=== PATIENT | male | born 1955 | race Caucasian/White ===

== ENCOUNTER 2017-07-28 05:24 | Observation (INO) | payer OTHER ==
[~2017-07-28] VITALS: Ht 170.2 cm; Wt 105.4 kg
[~2017-07-28 05:24] MED LIST: AMLODIPINE BESYL5 MG PO; ASPIR 8181 M1 PO; ASPIR-LOW81 MG PO; BISOPROLOL-HCT1 EAC2 PO; BISOPROLOL-HCT1 EAC4 PO; CRESTOR20 MG PO; CRESTOR40 MG PO; DIGESTIVE ADVA1 EAC1 PO; DOCUSATE SODIU100 MG PO; DYAZIDE, MA1 CAPSULE PO; EFFEXOR XR75 MG PO; EFFEXOR75 MG PO; EFFIENT10 MG PO; ERGOCALCIF50000 UNIT PO; FENOFIBRATE160 M1 PO; FISH OIL 1,0001 EAC7 PO; FISH OIL 1,2001 EAC5 PO; FLAGYL250 MG PO; FLAGYL500 MG PO; FUROSEMIDE40 MG PO; GLIPIZIDE10 MG PO; GLIPIZIDE5 MG PO; GLUCOPHAGE1000 MG PO; GLUCOPHAGE500 MG PO; HUMALOG100 UNIT/1 SC; HUMALOG100 UNIT/2 SC; IMDUR120 MG PO; IMDUR30 MG PO; IMDUR60 MG PO; INVOKANA300 MG PO; ISOSORBIDE MON120 M1 PO; JANUVIA100 MG PO; KEFLEX500 MG PO; LEVEMIR FL100 UNIT/1 SC; LEVEMIR FL100 UNITS/ SC; LEVEMIR100 UNIT/2 SC; LIRAGLUTIDE IJ; LISINOPRIL10 MG PO; LO-DOSE ASPIRIN81 M1 PO; LO-DOSE ASPIRIN81 M2 PO; LOPRESSOR25 MG PO; LOPRESSOR50 MG PO; LOVAZA1 GM PO; MAXZIDE 37.5 M1 EACH PO; METFORMIN HCL500 MG PO; METOPROLOL TART25 MG PO; MIRALAX17 GM PO; NEXIUM 24HR20 MG PO; NEXIUM20 MG PO; NEXIUM40 MG PO; NIASPAN,SLO-NI500 MG PO; NITROSTAT0.4 MG SL; OXAYDO5 MG PO; PLAVIX75 MG PO; POTASSIUM CHLO20 ME2 PO; PROBIOTIC1 EAC1 PO; RANEXA1000 MG PO; RANEXA500 MG PO; SIMVASTATIN20 MG PO; SPIRONOLACTONE25 MG PO; TRESIBA FL100 UNIT/1 SC; TRIAMTERENE-HC1 EACH PO; TRICOR145 MG PO; TYLENOL EXTRA500 MG PO; VENLAFAXINE HCL75 M1 PO; VENLAFAXINE HCL75 M3 PO; VENLAFAXINE HCL75 MG PO; VICODIN 5-3001 EACH PO; VICTOZA 2-0.6 MG/0.1 IJ; VICTOZA IJ; VITAMIN D2000 UNIT PO; VITAMIN D32000 UNI1 PO; VITAMIN D32000 UNIT PO; ZIAC 2.5/6.251 TAB PO
[2017-07-28 06:07] LABS: HEMATOCRIT 40.2 % (38.0-50.0); MCH 28.5 PG (29.0-34.0); MCHC 33.8 G/DL (30.0-36.0); MCV 84.3 FL (86-99); MEAN PLAT.VOLUME 8.8 uM^3 (9.0-12.4); PLATELET COUNT 97 K/uL (156-360); RBC DIS.WIDTH-CV 14.6 % (11.8-14.6); RBC DIS.WIDTH-SD 44.4 % (39-53); RED BLOOD COUNT 4.77 M/uL (4.00-5.50); WHITE BLOOD COUNT 3.8 K/uL (4.1-10.2)
[2017-07-28 06:15] LABS: CHLORIDE 98 mEq/L (99-109); POTASSIUM 4.3 mEq/L (3.7-5.4); SODIUM 134 mEq/L (136-147)
[2017-07-28 06:17] LABS: GLUCOSE 257 mg/dL (70-99)
[2017-07-28 06:18] LABS: ANION GAP 18 MEQ/L (2-14)
[2017-07-28 06:21] LABS: GFR ESTIMATE (CALCULATED) > 59 mL/min/; UREA NITROGEN (BUN) 14 mg/dL (9-23)
[2017-07-28 06:28] LABS: TROP-I INTERPRETATION NEGATIVE; TROPONIN-I 0.01 ng/mL (0.0-0.30)
[2017-07-28 08:38] VITALS: BP 146/77
[2017-07-28 12:43] VITALS: BP 103/69
[2017-07-28] MEDS ORDERED: DIGESTIVE ADVA1 EAC1 PO (13:26)
[2017-07-28] MEDS ORDERED: FENOFIBRATE160 M1 PO (13:27)
[2017-07-28] MEDS ORDERED: EFFIENT10 MG PO (13:28)
[2017-07-28] MEDS ORDERED: CRESTOR40 MG PO (13:28)
[2017-07-28] MEDS ORDERED: ALDACTONE25 MG PO (13:29)
[2017-07-28] MEDS ORDERED: FUROSEMIDE40 MG PO (13:29)
[2017-07-28] MEDS ORDERED: INVOKANA300 MG PO (13:30)
[2017-07-28] MEDS ORDERED: JANUVIA100 MG PO (13:30)
[2017-07-28] MEDS ORDERED: NEXIUM40 MG PO (13:31)
[2017-07-28] MEDS ORDERED: VENLAFAXINE HCL75 M3 PO (13:32)
[2017-07-28] MEDS ORDERED: METFORMIN HCL1000 MG PO (13:33)
[2017-07-28] MEDS ORDERED: METOPROLOL TART25 MG PO (13:33)
[2017-07-28] MEDS ORDERED: POTASSIUM CHLO20 ME2 PO (13:36)
[2017-07-28] MEDS ORDERED: ASPIR 8181 M1 PO (13:36)
[2017-07-28] MEDS ORDERED: VITAMIN D2000 UNIT PO (13:37)
[2017-07-28] MEDS ORDERED: TRESIBA FL200 UNIT/1 SC (13:38)
[2017-07-28] MEDS ORDERED: HUMALOG100 UNIT/1 SC (13:39)
[2017-07-28 13:53] LABS: TROP-I INTERPRETATION NEGATIVE; TROPONIN-I < 0.01 ng/mL (0.0-0.30)
[2017-07-28 16:38] LABS: POINT-OF-CARE METER ID UU13113700
[2017-07-28 18:51] LABS: TROP-I INTERPRETATION NEGATIVE; TROPONIN-I < 0.01 ng/mL (0.0-0.30)
[2017-07-28 19:44] VITALS: BP 139/72
[2017-07-28] MEDS ORDERED: OXYCODONE HCL5 MG PO (21:03)
[2017-07-28] MEDS ORDERED: FLEXERIL5 MG PO (21:04)
[2017-07-28 21:30] LABS: POINT-OF-CARE METER ID UU13113831
== END 2017-07-28 22:24 | disposition home or self-care (01) ==
LOC: EME 05:24 → EDOF 07:23 → ENRESERV 07:28 → EDOF 07:35 → 5WEST 08:19
PROVIDERS: Internal Medicine
DX: R07.89 Other chest pain (principal); M54.6 Pain in thoracic spine; D68.9 Coagulation defect, unspecified; I35.0 Nonrheumatic aortic (valve) stenosis; Z95.2 Presence of prosthetic heart valve; I25.10 Atherosclerotic heart disease of native coronary artery without angina pectoris; Z95.1 Presence of aortocoronary bypass graft; I10 Essential (primary) hypertension; E11.9 Type 2 diabetes mellitus without complications; E78.5 Hyperlipidemia, unspecified; G47.30 Sleep apnea, unspecified; E66.9 Obesity, unspecified; Z68.39 Body mass index [BMI] 39.0-39.9, adult; K21.9 Gastro-esophageal reflux disease without esophagitis; Z98.890 Other specified postprocedural states; Z82.49 Family history of ischemic heart disease and other diseases of the circulatory system; Z79.4 Long term (current) use of insulin
CPT/HCPCS: 71020; 71275; 80048; 81003; 82948; 83605; 84484; 85027; 85379; 87040; 87502; 87801; 93005; 99281; 99285; G0378; J1650; J1815; J7030

== ENCOUNTER 2017-12-16 01:00 | Inpatient (IN) | payer OTHER ==
[2017-12-16] VITALS (17 sets, daily range): BP systolic 85–152; BP diastolic 53–98
[~2017-12-16 01:00] MED LIST changes: +ALDACTONE25 MG PO; +FLEXERIL5 MG PO; +METFORMIN HCL1000 MG PO; +OXYCODONE HCL5 MG PO; +TRESIBA FL200 UNIT/1 SC
[2017-12-16 01:12] LABS: BASOPHIL (%) 0.3 % (0-1); EOSINOPHIL (%) 0.2 % (0-5); HEMATOCRIT 30.5 % (38.0-50.0); HEMOGLOBIN 9.7 G/DL (12.5-16.6); IMMATURE GRANULOCYTE (%) 0.5 % (0.0-0.7); LYMPHOCYTE (%) 23.6 % (15-42); LYMPHOCYTE COUNT 1.5 K/uL (1.0-2.8); MCH 24.3 PG (29.0-34.0); MCHC 31.8 G/DL (30.0-36.0); MCV 76.3 FL (86-99); MONOCYTE (%) 6.1 % (3-12); MONOCYTE COUNT 0.4 K/uL (0-0.8); NEUTROPHIL (%) 69.3 % (45-76); NEUTROPHIL COUNT 4.4 K/uL (1.8-6.4); PLATELET COUNT 165 K/uL (156-360); RBC DIS.WIDTH-SD 52.3 % (39-53); WHITE BLOOD COUNT 6.4 K/uL (4.1-10.2)
[2017-12-16 01:17] LABS: INTER. NORMALIZED RATIO 1.3
[2017-12-16 01:20] LABS: PTT 28.9 SEC (25-37)
[2017-12-16 01:35] LABS: TROP-I INTERPRETATION NEGATIVE; TROPONIN-I < 0.01 ng/mL (0.0-0.30)
[2017-12-16 01:52] LABS: AMYLASE 130 IU/L (1-118); CHLORIDE 99 MEQ/L (99-109); GLUCOSE 160 mg/dL (70-99); LIPASE 155 U/L (1.0-51.0); POTASSIUM 4.1 MEQ/L (3.7-5.4); SERUM ETHYL ALCOHOL < 10 mg/dL; SODIUM 130 MEQ/L (136-147); UREA NITROGEN (BUN) 13 mg/dL (9-23)
[2017-12-16 02:36] LABS: CREATININE 0.8 MG/DL (0.6-1.3); GFR ESTIMATE (CALCULATED) > 59 mL/min/ (58.99-99999)
[2017-12-16 08:42] LABS: CHLORIDE 98 MEQ/L (99-109); GFR ESTIMATE (CALCULATED) > 59 mL/min/ (58.99-99999); GLUCOSE 157 mg/dL (70-99); POTASSIUM 4.1 MEQ/L (3.7-5.4); SODIUM 132 MEQ/L (136-147); UREA NITROGEN (BUN) 15 mg/dL (9-23)
[2017-12-16 09:33] LABS: TROP-I INTERPRETATION POSITIVE
[2017-12-16 10:00] LABS: BASOPHIL (%) 0.1 % (0-1); EOSINOPHIL (%) 0 % (0-5); HEMATOCRIT 29.4 % (38.0-50.0); HEMOGLOBIN 9.4 G/DL (12.5-16.6); IMMATURE GRANULOCYTE (%) 0.5 % (0.0-0.7); LYMPHOCYTE (%) 11.5 % (15-42); LYMPHOCYTE COUNT 0.9 K/uL (1.0-2.8); MCV 75.2 FL (86-99); MONOCYTE (%) 4.2 % (3-12); MONOCYTE COUNT 0.3 K/uL (0-0.8); NEUTROPHIL (%) 83.7 % (45-76); NEUTROPHIL COUNT 6.8 K/uL (1.8-6.4); PLATELET COUNT 172 K/uL (156-360); RBC DIS.WIDTH-CV 19.1 % (11.8-14.6); RBC DIS.WIDTH-SD 52.1 % (39-53); RED BLOOD COUNT 3.91 M/uL (4.00-5.50); WHITE BLOOD COUNT 8.1 K/uL (4.1-10.2)
[2017-12-16 10:09] LABS: CHLORIDE 98 MEQ/L (99-109); POTASSIUM 3.8 MEQ/L (3.7-5.4); SODIUM 130 MEQ/L (136-147)
[2017-12-16 10:15] LABS: CREATININE 0.9 MG/DL (0.6-1.3); GFR ESTIMATE (CALCULATED) > 59 mL/min/ (58.99-99999); GLUCOSE 147 mg/dL (70-99); UREA NITROGEN (BUN) 15 mg/dL (9-23)
[2017-12-16 13:05] LABS: CREATINE KINASE 876 IU/L (1-294); TOTAL CK 876 IU/L (1-294)
[2017-12-16 13:28] LABS: TROP-I INTERPRETATION POSITIVE
[2017-12-16 14:37] LABS: CK-MB 33.2 ng/mL (0.0-4.9); CKMB RELATIVE INDEX 3.8 (0.0-3.9)
[2017-12-16 18:49] LABS: CREATINE KINASE 640 IU/L (1-294); TOTAL CK 640 IU/L (1-294)
[2017-12-16 18:53] LABS: TROP-I INTERPRETATION POSITIVE; TROPONIN-I 35.11 ng/mL (0.0-0.30)
[2017-12-16 20:14] LABS: CKMB RELATIVE INDEX 2.8 (0.0-3.9)
[2017-12-16 20:18] LABS: CK-MB 18.2 ng/mL (0.0-4.9)
[2017-12-17] VITALS (20 sets, daily range): BP systolic 80–125; BP diastolic 43–78
[2017-12-17 01:10] LABS: TROP-I INTERPRETATION POSITIVE
[2017-12-17 01:34] LABS: CK-MB 8.5 ng/mL (0.0-4.9)
[2017-12-17 02:11] LABS: CREATINE KINASE 430 IU/L (1-294); TOTAL CK 430 IU/L (1-294)
[2017-12-17 04:54] LABS: BASOPHIL (%) 0.2 % (0-1); EOSINOPHIL (%) 0.2 % (0-5); HEMATOCRIT 26.3 % (38.0-50.0); HEMOGLOBIN 8.5 G/DL (12.5-16.6); IMMATURE GRANULOCYTE (%) 0.9 % (0.0-0.7); LYMPHOCYTE (%) 22.7 % (15-42); LYMPHOCYTE COUNT 1.9 K/uL (1.0-2.8); MCH 24.3 PG (29.0-34.0); MCHC 32.3 G/DL (30.0-36.0); MCV 75.1 FL (86-99); MONOCYTE (%) 6.7 % (3-12); MONOCYTE COUNT 0.6 K/uL (0-0.8); NEUTROPHIL (%) 69.3 % (45-76); NEUTROPHIL COUNT 5.7 K/uL (1.8-6.4); PLATELET COUNT 179 K/uL (156-360); RBC DIS.WIDTH-CV 19.4 % (11.8-14.6); RBC DIS.WIDTH-SD 53.1 % (39-53); WHITE BLOOD COUNT 8.2 K/uL (4.1-10.2)
[2017-12-17 06:04] LABS: CHLORIDE 97 MEQ/L (99-109); CREATININE 0.9 MG/DL (0.6-1.3); GFR ESTIMATE (CALCULATED) > 59 mL/min/ (58.99-99999); LDL CHOLESTEROL 38 mg/dL (Desirable<100); NON-HDL CHOLESTEROL 68 mg/dL (Desirable<160); POTASSIUM 3.7 MEQ/L (3.7-5.4); SODIUM 129 MEQ/L (136-147); TOTAL CHOLESTEROL 74 mg/dL (Desirable<200); TRIGLYCERIDES 149 MG/DL (Normal: <150); UREA NITROGEN (BUN) 15 mg/dL (9-23)
[2017-12-17 06:06] LABS: GLUCOSE 91 mg/dL (70-99); HDL CHOLESTEROL 6 MG/DL (Desirable>=40)
[2017-12-17 09:03] LABS: HEMOGLOBIN A1c (GLYCOHEMOGLOB) 6.1 % (Below 5.7)
== END 2017-12-17 20:13 | disposition short-term general hospital (02) | DRG 246 ==
LOC: EME → EDBD 01:00 → ENRESERV 01:22 → CATH 01:30 → ENRESERV 01:41 → 4WEST 04:53
PROVIDERS: Emergency Medicine; Internal Medicine Cardiovascular Disease; Internal Medicine Critical Care Medicine
PROC: 027034Z Dilation of Coronary Artery, One Artery with Drug-eluting Intraluminal Device, Percutaneous Approach (ICD-10-PCS; principal; 2017-12-16)
PROC: B2151ZZ Fluoroscopy of Left Heart using Low Osmolar Contrast (ICD-10-PCS; principal; 2017-12-16)
PROC: 4A023N7 Measurement of Cardiac Sampling and Pressure, Left Heart, Percutaneous Approach (ICD-10-PCS; principal; 2017-12-16)
PROC: B2111ZZ Fluoroscopy of Multiple Coronary Arteries using Low Osmolar Contrast (ICD-10-PCS; principal; 2017-12-16)
PROC: 5A09357 Assistance with Respiratory Ventilation, Less than 24 Consecutive Hours, Continuous Positive Airway Pressure (ICD-10-PCS; 2017-12-16)
DX: T82.855A Stenosis of coronary artery stent, initial encounter (principal); I21.09 ST elevation (STEMI) myocardial infarction involving other coronary artery of anterior wall; Y83.1 Surgical operation with implant of artificial internal device as the cause of abnormal reaction of the patient, or of later complication, without mention of misadventure at the time of the procedure; I25.10 Atherosclerotic heart disease of native coronary artery without angina pectoris; I25.5 Ischemic cardiomyopathy; E87.1 Hypo-osmolality and hyponatremia; I27.20 Pulmonary hypertension, unspecified; E11.9 Type 2 diabetes mellitus without complications; E78.5 Hyperlipidemia, unspecified; G47.33 Obstructive sleep apnea (adult) (pediatric); I10 Essential (primary) hypertension; K21.9 Gastro-esophageal reflux disease without esophagitis; D64.9 Anemia, unspecified; G43.909 Migraine, unspecified, not intractable, without status migrainosus; M10.9 Gout, unspecified; M54.9 Dorsalgia, unspecified; R10.9 Unspecified abdominal pain; L71.9 Rosacea, unspecified; E66.9 Obesity, unspecified; Z95.1 Presence of aortocoronary bypass graft; Z95.3 Presence of xenogenic heart valve; Z95.5 Presence of coronary angioplasty implant and graft; Z79.82 Long term (current) use of aspirin
CPT/HCPCS: 80048; 80048 91; 80061; 81003; 82150; 82550; 82550 91; 82553; 82948; 83036; 83690; 84484; 85025; 85025 91; 85347; 85610; 85730; 86850; 86900; 86901; 87641; 90686; 93005; 93306; 94660; C1725; C1760; C1769; C1874; C1887; C1894; G0480; J0690; J1644; J1815; J1940; J2250; J2405; J3010; J3246; J3475; J7040

== ENCOUNTER 2018-01-23 11:18 | Inpatient (IN) | payer OTHER ==
[~2018-01-23] VITALS: Ht 170.2 cm; Wt 96.8 kg
[~2018-01-23 11:18] MED LIST changes: -LOPRESSOR50 MG PO; +TOPROL XL50 MG PO
[2018-01-23 11:47] LABS: BASOPHIL (%) 0.2 % (0-1); EOSINOPHIL (%) 0.2 % (0-5); HEMATOCRIT 26.9 % (38.0-50.0); HEMOGLOBIN 8.6 G/DL (12.5-16.6); IMMATURE GRANULOCYTE (%) 0.8 % (0.0-0.7); LYMPHOCYTE (%) 22.9 % (15-42); LYMPHOCYTE COUNT 1.2 K/uL (1.0-2.8); MCH 24.2 PG (29.0-34.0); MCV 75.8 FL (86-99); MONOCYTE (%) 4.5 % (3-12); MONOCYTE COUNT 0.2 K/uL (0-0.8); NEUTROPHIL (%) 71.4 % (45-76); NEUTROPHIL COUNT 3.6 K/uL (1.8-6.4); PLATELET COUNT 164 K/uL (156-360); RBC DIS.WIDTH-CV 19.7 % (11.8-14.6); RBC DIS.WIDTH-SD 54.4 % (39-53); RED BLOOD COUNT 3.55 M/uL (4.00-5.50); WHITE BLOOD COUNT 5.1 K/uL (4.1-10.2)
[2018-01-23 12:03] LABS: CHLORIDE 97 mEq/L (99-109); SODIUM 130 mEq/L (136-147)
[2018-01-23 12:04] LABS: GLUCOSE 117 mg/dL (70-99)
[2018-01-23 12:08] LABS: CREATININE 0.8 mg/dL (0.6-1.3); GFR ESTIMATE (CALCULATED) > 59 mL/min/ (58.99-99999)
[2018-01-23 12:09] LABS: UREA NITROGEN (BUN) 14 mg/dL (9-23)
[2018-01-23 13:05] LABS: INTER. NORMALIZED RATIO 1.3
[2018-01-23 13:08] LABS: ALBUMIN 2.7 g/dL (3.2-4.8); PTT 38.3 SEC (25-37)
[2018-01-23 13:11] LABS: TOTAL PROTEIN 8.2 g/dL (6.4-8.3)
[2018-01-23 13:13] LABS: TOTAL BILIRUBIN 0.7 mg/dL (0.0-1.0)
[2018-01-23 13:14] LABS: ALKALINE PHOSPHATASE 74 IU/L (3-129)
[2018-01-23 13:16] LABS: AST (GOT) 40 IU/L (2-34)
[2018-01-23 13:17] LABS: ALT (GPT) 20 IU/L (3-49)
[2018-01-23 13:32] LABS: APPEARANCE CLEAR ((CLEAR)); BILIRUBIN NEGATIVE; BLOOD LARGE; COLOR YELLOW ((YELLOW)); GLUCOSE (STRIP) >=500; KETONES NEGATIVE; LEUKOCYTES NEGATIVE; NITRITE NEGATIVE; PROTEIN (STRIP) NEGATIVE; SPECIFIC GRAVITY 1.007 (1.000-1.030); UROBILINOGEN 0.2 MG/DL (0.2-1.0)
[2018-01-23 13:40] LABS: BACTERIA RARE /HPF; EPITHELIAL CELLS NONE SEEN /HPF; MUCUS TRACE /LPF; RED BLOOD CELLS 15-20 /HPF (0-5); UCUL ADDED? NO; WHITE BLOOD CELLS 0-5 /HPF (0-5)
[2018-01-23] MEDS ORDERED: FARXIGA5 MG PO (15:27)
[2018-01-23] MEDS ORDERED: INDOCIN50 MG PO (15:30)
[2018-01-23] MEDS ORDERED: PRINIVIL5 MG PO (15:30)
[2018-01-23] MEDS ORDERED: COLCRYS0.6 MG PO (15:30)
[2018-01-23] MEDS ORDERED: B-12500 MC1 SL (15:30)
[2018-01-23 16:21] VITALS: BP 124/62
[2018-01-23 19:41] VITALS: BP 103/64
[2018-01-23 23:16] VITALS: BP 106/65
[2018-01-24 04:31] VITALS: BP 100/65
[2018-01-24 05:47] LABS: HEMATOCRIT 26.2 % (38.0-50.0); HEMOGLOBIN 8.1 G/DL (12.5-16.6); MCH 23.5 PG (29.0-34.0); MCHC 30.9 G/DL (30.0-36.0); MCV 75.9 FL (86-99); PLATELET COUNT 175 K/uL (156-360); RBC DIS.WIDTH-CV 19.7 % (11.8-14.6); RBC DIS.WIDTH-SD 53.9 % (39-53); RED BLOOD COUNT 3.45 M/uL (4.00-5.50); WHITE BLOOD COUNT 4.5 K/uL (4.1-10.2)
[2018-01-24 06:10] LABS: CHLORIDE 97 MEQ/L (99-109); CREATININE 0.8 MG/DL (0.6-1.3); GFR ESTIMATE (CALCULATED) > 59 mL/min/ (58.99-99999); GLUCOSE 97 mg/dL (70-99); SODIUM 132 MEQ/L (136-147); UREA NITROGEN (BUN) 12 mg/dL (9-23)
[2018-01-24 08:57] VITALS: BP 97/60
[2018-01-24 11:29] VITALS: BP 104/65
[2018-01-24 16:32] VITALS: BP 111/70
[2018-01-24 20:24] VITALS: BP 113/74
[2018-01-24 23:44] VITALS: BP 113/74
[2018-01-25] VITALS (13 sets, daily range): BP systolic 98–119; BP diastolic 62–76
[2018-01-25 05:56] LABS: HEMOGLOBIN 7.4 G/DL (12.5-16.6); MCH 23.3 PG (29.0-34.0); MCHC 30.8 G/DL (30.0-36.0); MCV 75.7 FL (86-99); PLATELET COUNT 146 K/uL (156-360); RBC DIS.WIDTH-CV 19.6 % (11.8-14.6); RBC DIS.WIDTH-SD 55.1 % (39-53); RED BLOOD COUNT 3.17 M/uL (4.00-5.50); WHITE BLOOD COUNT 4.2 K/uL (4.1-10.2)
[2018-01-25 06:22] LABS: CHLORIDE 101 MEQ/L (99-109); CREATININE 0.6 MG/DL (0.6-1.3); GFR ESTIMATE (CALCULATED) > 59 mL/min/ (58.99-99999); GLUCOSE 137 mg/dL (70-99); SODIUM 133 MEQ/L (136-147); UREA NITROGEN (BUN) 13 mg/dL (9-23)
[2018-01-25 10:47] LABS: HEMATOCRIT 23.5 % (38.0-50.0); HEMOGLOBIN 7.3 G/DL (12.5-16.6); MCV 77.6 FL (86-99)
[2018-01-25 12:22] LABS: TROP-I INTERPRETATION NEGATIVE; TROPONIN-I 0.11 ng/mL (0.0-0.30)
[2018-01-26 01:41] VITALS: BP 109/69
[2018-01-26 02:07] LABS: HEMOGLOBIN 8.6 G/DL (12.5-16.6)
[2018-01-26 02:27] LABS: CHLORIDE 101 mEq/L (99-109); MAGNESIUM 1.3 mg/dL (1.3-2.7); SODIUM 135 mEq/L (136-147)
[2018-01-26 02:30] LABS: GLUCOSE 95 mg/dL (70-99)
[2018-01-26 02:32] LABS: CREATININE 0.9 mg/dL (0.6-1.3); GFR ESTIMATE (CALCULATED) > 59 mL/min/ (58.99-99999)
[2018-01-26 02:33] LABS: UREA NITROGEN (BUN) 15 mg/dL (9-23)
[2018-01-26 04:49] VITALS: BP 108/66
[2018-01-26 05:45] LABS: HEMOGLOBIN 8.3 G/DL (12.5-16.6); MCH 24.7 PG (29.0-34.0); MCHC 31.9 G/DL (30.0-36.0); MCV 77.4 FL (86-99); PLATELET COUNT 155 K/uL (156-360); RBC DIS.WIDTH-CV 18.7 % (11.8-14.6); RBC DIS.WIDTH-SD 52.2 % (39-53); RED BLOOD COUNT 3.36 M/uL (4.00-5.50); WHITE BLOOD COUNT 5.7 K/uL (4.1-10.2)
[2018-01-26 05:59] LABS: TROP-I INTERPRETATION NEGATIVE; TROPONIN-I 0.11 ng/mL (0.0-0.30)
[2018-01-26 06:09] LABS: CHLORIDE 99 MEQ/L (99-109); CREATININE 0.8 MG/DL (0.6-1.3); GFR ESTIMATE (CALCULATED) > 59 mL/min/ (58.99-99999); GLUCOSE 76 mg/dL (70-99); POTASSIUM 3.9 MEQ/L (3.7-5.4); SODIUM 133 MEQ/L (136-147); UREA NITROGEN (BUN) 15 mg/dL (9-23)
[2018-01-26 08:12] VITALS: BP 109/69
[2018-01-26 11:26] VITALS: BP 96/58
[2018-01-26 16:38] VITALS: BP 111/67
[2018-01-26 21:00] VITALS: BP 103/66
[2018-01-27] VITALS (8 sets, daily range): BP systolic 102–130; BP diastolic 59–75
[2018-01-27 05:28] LABS: HEMATOCRIT 25.6 % (38.0-50.0); MCH 24.3 PG (29.0-34.0); MCHC 31.3 G/DL (30.0-36.0); MCV 77.8 FL (86-99); PLATELET COUNT 141 K/uL (156-360); RBC DIS.WIDTH-SD 53.1 % (39-53); RED BLOOD COUNT 3.29 M/uL (4.00-5.50); WHITE BLOOD COUNT 5.1 K/uL (4.1-10.2)
[2018-01-27 05:54] LABS: CHLORIDE 102 MEQ/L (99-109); CREATININE 0.8 MG/DL (0.6-1.3); GFR ESTIMATE (CALCULATED) > 59 mL/min/ (58.99-99999); MAGNESIUM 1.8 mg/dl (1.3-2.7); POTASSIUM 3.9 MEQ/L (3.7-5.4); SODIUM 136 MEQ/L (136-147); UREA NITROGEN (BUN) 15 mg/dL (9-23)
[2018-01-27 05:55] LABS: GLUCOSE 111 mg/dL (70-99)
[2018-01-28 04:32] VITALS: BP 115/76
[2018-01-28 05:39] LABS: HEMATOCRIT 25.1 % (38.0-50.0); HEMOGLOBIN 7.8 G/DL (12.5-16.6); MCH 24.7 PG (29.0-34.0); MCHC 31.1 G/DL (30.0-36.0); MCV 79.4 FL (86-99); PLATELET COUNT 170 K/uL (156-360); RBC DIS.WIDTH-CV 19.5 % (11.8-14.6); RBC DIS.WIDTH-SD 54.9 % (39-53); RED BLOOD COUNT 3.16 M/uL (4.00-5.50); WHITE BLOOD COUNT 5.7 K/uL (4.1-10.2)
[2018-01-28 05:50] LABS: CHLORIDE 103 MEQ/L (99-109); CREATININE 0.9 MG/DL (0.6-1.3); GFR ESTIMATE (CALCULATED) > 59 mL/min/ (58.99-99999); GLUCOSE 122 mg/dL (70-99); MAGNESIUM 1.8 mg/dl (1.3-2.7); POTASSIUM 4.2 MEQ/L (3.7-5.4); SODIUM 137 MEQ/L (136-147); UREA NITROGEN (BUN) 13 mg/dL (9-23)
[2018-01-28 07:48] VITALS: BP 120/72
[2018-01-28 12:03] VITALS: BP 115/72
[2018-01-28 15:50] VITALS: BP 99/55
[2018-01-28 21:00] VITALS: BP 111/67
[2018-01-28 23:40] VITALS: BP 109/68
[2018-01-29 04:23] VITALS: BP 111/69
[2018-01-29 06:11] LABS: HEMATOCRIT 27.5 % (38.0-50.0); HEMOGLOBIN 8.5 G/DL (12.5-16.6); MCV 80.4 FL (86-99)
[2018-01-29 08:53] VITALS: BP 108/63
[2018-01-29 11:29] VITALS: BP 104/61
[2018-01-29 15:16] VITALS: BP 102/58
== END 2018-01-29 14:51 | disposition home or self-care (01) | DRG 264 ==
LOC: EME 11:18 → ENRESERV 12:59 → EDOF 13:05 → 4EAST 13:05 → ENRESERV 13:35 → 4EAST 16:17 → ENPENDDIS 01-29 → 4EAST 01-29 14:51
PROVIDERS: Family Medicine; Hospitalist; Internal Medicine; Physician Assistant Medical
DX: T82.6XXA Infection and inflammatory reaction due to cardiac valve prosthesis, initial encounter (principal); I33.0 Acute and subacute infective endocarditis; R78.81 Bacteremia; D62 Acute posthemorrhagic anemia; I10 Essential (primary) hypertension; I25.10 Atherosclerotic heart disease of native coronary artery without angina pectoris; E83.42 Hypomagnesemia; E78.5 Hyperlipidemia, unspecified; E11.9 Type 2 diabetes mellitus without complications; K21.9 Gastro-esophageal reflux disease without esophagitis; D64.9 Anemia, unspecified; B95.4 Other streptococcus as the cause of diseases classified elsewhere; Y83.1 Surgical operation with implant of artificial internal device as the cause of abnormal reaction of the patient, or of later complication, without mention of misadventure at the time of the procedure; R04.0 Epistaxis; B95.2 Enterococcus as the cause of diseases classified elsewhere; R53.1 Weakness; E66.9 Obesity, unspecified; I27.20 Pulmonary hypertension, unspecified; J34.89 Other specified disorders of nose and nasal sinuses; M10.9 Gout, unspecified; I25.2 Old myocardial infarction; Z79.4 Long term (current) use of insulin; Z95.1 Presence of aortocoronary bypass graft; Z95.3 Presence of xenogenic heart valve; Z95.5 Presence of coronary angioplasty implant and graft; Z68.33 Body mass index [BMI] 33.0-33.9, adult
CPT/HCPCS: 36415; 71046; 76937; 80048; 80048 91; 80053; 81003; 82533; 82550; 82948; 83605; 83735; 84484; 85014; 85018; 85025; 85027; 85610; 85652; 85730; 86140; 86850; 86900; 86901; 86920; 87040; 87077; 87186; 87801; 93005; 93306; 93312; 93325; 99281; 99285; J0295; J0696; J1650; J2540; J3370; J3475; J7030; J7040; J7050; P9040

== ENCOUNTER 2018-03-07 06:25 | Inpatient (IN) | payer OTHER ==
[~2018-03-07] VITALS: Ht 170.2 cm; Wt 98.0 kg
[~2018-03-07 06:25] MED LIST changes: +B-12500 MC1 SL; +COLCRYS0.6 MG PO; +FARXIGA5 MG PO; +INDOCIN50 MG PO; +METOPROLOL TART50 MG PO; +PRINIVIL5 MG PO; -TOPROL XL50 MG PO; -TYLENOL EXTRA500 MG PO; +TYLENOL REGULA325 MG PO
[2018-03-07 07:40] LABS: BASOPHIL (%) 0.6 % (0-1); EOSINOPHIL (%) 3.8 % (0-5); EOSINOPHIL COUNT 0.1 K/uL (0-0.3); HEMATOCRIT 26.3 % (38.0-50.0); HEMOGLOBIN 8.2 G/DL (12.5-16.6); IMMATURE GRANULOCYTE (%) 1.9 % (0.0-0.7); LYMPHOCYTE (%) 46.9 % (15-42); LYMPHOCYTE COUNT 0.8 K/uL (1.0-2.8); MCH 24.7 PG (29.0-34.0); MCHC 31.2 G/DL (30.0-36.0); MCV 79.2 FL (86-99); MONOCYTE (%) 17.5 % (3-12); MONOCYTE COUNT 0.3 K/uL (0-0.8); NEUTROPHIL (%) 29.3 % (45-76); NEUTROPHIL COUNT 0.5 K/uL (1.8-6.4); PLATELET COUNT 247 K/uL (156-360); RBC DIS.WIDTH-CV 19.3 % (11.8-14.6); RBC DIS.WIDTH-SD 55.5 % (39-53); RED BLOOD COUNT 3.32 M/uL (4.00-5.50); WHITE BLOOD COUNT 1.6 K/uL (4.1-10.2)
[2018-03-07 07:42] LABS: INTER. NORMALIZED RATIO 1.4
[2018-03-07 07:44] LABS: PTT 33.2 SEC (25-37)
[2018-03-07 08:06] LABS: TROPONIN-I 0.83 ng/mL (0.0-0.30)
[2018-03-07 08:08] LABS: CHLORIDE 101 MEQ/L (99-109); CREATININE 0.9 MG/DL (0.6-1.3); GFR ESTIMATE (CALCULATED) > 59 mL/min/ (58.99-99999); GLUCOSE 138 mg/dL (70-99); POTASSIUM 3.7 MEQ/L (3.7-5.4); SODIUM 135 MEQ/L (136-147); UREA NITROGEN (BUN) 12 mg/dL (9-23)
[2018-03-07 08:09] LABS: TROP-I INTERPRETATION POSITIVE
[2018-03-07] MEDS ORDERED: VANCOMYCIN1 GM/150 M IV (09:21)
[2018-03-07 11:27] VITALS: BP 118/75
[2018-03-07 11:38] LABS: VANCOMYCIN, TROUGH 15.6 MCG/ML (10-20)
[2018-03-07 15:33] LABS: TROP-I INTERPRETATION POSITIVE; TROPONIN-I 0.81 ng/mL (0.0-0.30)
[2018-03-07 16:44] VITALS: BP 121/77
[2018-03-07 19:00] VITALS: BP 108/65
[2018-03-07 23:00] VITALS: BP 121/71
[2018-03-08 04:00] VITALS: BP 110/67
[2018-03-08 07:36] LABS: HEMATOCRIT 24.4 % (38.0-50.0); HEMOGLOBIN 7.5 G/DL (12.5-16.6); MCH 23.8 PG (29.0-34.0); MCHC 30.7 G/DL (30.0-36.0); MCV 77.5 FL (86-99); PLATELET COUNT 255 K/uL (156-360); RBC DIS.WIDTH-CV 19.3 % (11.8-14.6); RBC DIS.WIDTH-SD 54.7 % (39-53); RED BLOOD COUNT 3.15 M/uL (4.00-5.50)
[2018-03-08 07:38] LABS: WHITE BLOOD COUNT 1.4 K/uL (4.1-10.2)
[2018-03-08 07:46] VITALS: BP 112/71
[2018-03-08 08:21] LABS: CHLORIDE 99 MEQ/L (99-109); CREATININE 0.9 MG/DL (0.6-1.3); GFR ESTIMATE (CALCULATED) > 59 mL/min/ (58.99-99999); GLUCOSE 171 mg/dL (70-99); POTASSIUM 3.6 MEQ/L (3.7-5.4); SODIUM 134 MEQ/L (136-147); UREA NITROGEN (BUN) 14 mg/dL (9-23)
[2018-03-08 11:31] VITALS: BP 113/62
[2018-03-08 15:50] VITALS: BP 108/66
[2018-03-08 19:45] VITALS: BP 110/65
[2018-03-08 23:00] VITALS: BP 118/74
[2018-03-09] VITALS (9 sets, daily range): BP systolic 94–117; BP diastolic 59–73
[2018-03-09 05:23] LABS: HEMATOCRIT 24.3 % (38.0-50.0); HEMOGLOBIN 7.4 G/DL (12.5-16.6); MCH 23.9 PG (29.0-34.0); MCHC 30.5 G/DL (30.0-36.0); MCV 78.6 FL (86-99); PLATELET COUNT 265 K/uL (156-360); RBC DIS.WIDTH-CV 19.1 % (11.8-14.6); RED BLOOD COUNT 3.09 M/uL (4.00-5.50)
[2018-03-09 05:52] LABS: ALKALINE PHOSPHATASE 56 IU/L (3-129); ALT (GPT) 9 IU/L (3-49); AST (GOT) 16 IU/L (2-34); CHLORIDE 100 MEQ/L (99-109); CREATININE 1.1 MG/DL (0.6-1.3); GFR ESTIMATE (CALCULATED) > 59 mL/min/ (58.99-99999); POTASSIUM 4.2 MEQ/L (3.7-5.4); SODIUM 136 MEQ/L (136-147); TOTAL BILIRUBIN 0.6 MG/DL (0.0-1.0); UREA NITROGEN (BUN) 19 mg/dL (9-23)
[2018-03-09 05:55] LABS: GLUCOSE 98 mg/dL (70-99)
[2018-03-09 06:05] LABS: ABS NEUTROPHIL COUNT 0.8; ANISOCYTOSIS 1+; ATYPICAL LYMPHOCYTE 1.7 %; BAND NEUTROPHILS 7.8 % (0-8.0); EOSINOPHIL ABS CT 0.1; EOSINOPHILS 6.1 % (0-5.0); GIANT PLATELETS 1+; LYMPHOCYTES 32.2 % (15.0-45.0); METAMYELOCYTES 1.7 %; MICROCYTOSIS 1+; MONOCYTES 18.3 % (0-9.0); PLAT.SUFFICIENCY ADEQUATE; POIKILOCYTOSIS 1+; POLYCHROMASIA 1+; SEG.NEUTROPHILS 32.2 % (46.0-76.0)
[2018-03-10 00:30] VITALS: BP 109/69
[2018-03-10 04:32] VITALS: BP 110/70
[2018-03-10 05:26] LABS: HEMATOCRIT 27.9 % (38.0-50.0); HEMOGLOBIN 8.5 G/DL (12.5-16.6); MCH 23.7 PG (29.0-34.0); MCHC 30.5 G/DL (30.0-36.0); MCV 77.9 FL (86-99); PLATELET COUNT 281 K/uL (156-360); RBC DIS.WIDTH-CV 18.4 % (11.8-14.6); RBC DIS.WIDTH-SD 52.8 % (39-53); RED BLOOD COUNT 3.58 M/uL (4.00-5.50); WHITE BLOOD COUNT 3.9 K/uL (4.1-10.2)
[2018-03-10 05:53] LABS: CHLORIDE 97 MEQ/L (99-109); CREATININE 1.1 MG/DL (0.6-1.3); GFR ESTIMATE (CALCULATED) > 59 mL/min/ (58.99-99999); GLUCOSE 78 mg/dL (70-99); POTASSIUM 4.3 MEQ/L (3.7-5.4); SODIUM 133 MEQ/L (136-147); UREA NITROGEN (BUN) 24 mg/dL (9-23)
[2018-03-10 07:30] LABS: ABS NEUTROPHIL COUNT 2.4; ANISOCYTOSIS 1+; BAND NEUTROPHILS 18.3 % (0-8.0); EOSINOPHIL ABS CT 0.1; EOSINOPHILS 1.7 % (0-5.0); LYMPHOCYTES 24.3 % (15.0-45.0); METAMYELOCYTES 0.9 %; MICROCYTOSIS 1+; MONOCYTES 9.6 % (0-9.0); MYELOCYTES 0.9 %; PLAT.SUFFICIENCY ADEQUATE; POLYCHROMASIA 2+; SEG.NEUTROPHILS 44.3 % (46.0-76.0); SMUDGE CELLS 0.9
[2018-03-10 08:45] VITALS: BP 98/60
[2018-03-10 11:21] VITALS: BP 103/63
[2018-03-10 12:24] VITALS: BP 103/61
[2018-03-10] MEDS ORDERED: SPIRONOLACTONE25 MG PO (14:11)
== END 2018-03-10 16:50 | disposition home or self-care (01) | DRG 280 ==
LOC: EME 06:25 → EDOF 09:13 → 4EAST 09:13 → ENRESERV 09:15 → 4EAST 10:56
PROVIDERS: Emergency Medicine; Hospitalist
PROC: 30233N1 Transfusion of Nonautologous Red Blood Cells into Peripheral Vein, Percutaneous Approach (ICD-10-PCS; principal; 2018-03-09)
DX: I11.0 Hypertensive heart disease with heart failure (principal); J96.01 Acute respiratory failure with hypoxia; D70.9 Neutropenia, unspecified; I25.5 Ischemic cardiomyopathy; I50.23 Acute on chronic systolic (congestive) heart failure; I21.4 Non-ST elevation (NSTEMI) myocardial infarction; R78.81 Bacteremia; M10.9 Gout, unspecified; B95.4 Other streptococcus as the cause of diseases classified elsewhere; T36.8X5A Adverse effect of other systemic antibiotics, initial encounter; E11.9 Type 2 diabetes mellitus without complications; E66.9 Obesity, unspecified; Y83.9 Surgical procedure, unspecified as the cause of abnormal reaction of the patient, or of later complication, without mention of misadventure at the time of the procedure; I35.0 Nonrheumatic aortic (valve) stenosis; E78.5 Hyperlipidemia, unspecified; I25.110 Atherosclerotic heart disease of native coronary artery with unstable angina pectoris; D64.9 Anemia, unspecified; D72.819 Decreased white blood cell count, unspecified; G47.33 Obstructive sleep apnea (adult) (pediatric); D63.8 Anemia in other chronic diseases classified elsewhere; Z88.0 Allergy status to penicillin; I25.2 Old myocardial infarction; Z95.1 Presence of aortocoronary bypass graft; Z79.82 Long term (current) use of aspirin; Z79.899 Other long term (current) drug therapy; Z82.49 Family history of ischemic heart disease and other diseases of the circulatory system; Z79.4 Long term (current) use of insulin; K21.9 Gastro-esophageal reflux disease without esophagitis; T82.6XXD Infection and inflammatory reaction due to cardiac valve prosthesis, subsequent encounter; I33.0 Acute and subacute infective endocarditis
CPT/HCPCS: 36415; 71045; 71275; 80048; 80053; 80061; 80202; 82948; 83036; 83880; 84484; 85025; 85027; 85610; 85730; 86850; 86900; 86901; 86920; 87040; 93005; 93970; 94799; 99281; 99285; J1650; J1815; J1940; J2997; J3370; P9016

== ENCOUNTER 2018-04-16 02:43 | Inpatient (IN) | payer OTHER ==
[2018-04-16] VITALS (14 sets, daily range): BP systolic 96–118; BP diastolic 55–73
[~2018-04-16] VITALS: Ht 170.2 cm; Wt 108.0 kg
[~2018-04-16 02:43] MED LIST changes: +POTASSIUM CHLO10 ME4 PO; +VANCOMYCIN1 GM/150 M IV
[2018-04-16 03:10] LABS: HEMATOCRIT 21.9 % (38.0-50.0); MCH 24.5 PG (29.0-34.0); MCHC 30.6 G/DL (30.0-36.0); MCV 79.9 FL (86-99); NRBC (%) 0.2 /100 WBC (0-0); PLATELET COUNT 248 K/uL (156-360); RBC DIS.WIDTH-CV 18.8 % (11.8-14.6); RBC DIS.WIDTH-SD 54.4 % (39-53); RED BLOOD COUNT 2.74 M/uL (4.00-5.50); WHITE BLOOD COUNT 8.1 K/uL (4.1-10.2)
[2018-04-16 03:12] LABS: HEMOGLOBIN 6.7 G/DL (12.5-16.6)
[2018-04-16 03:13] LABS: CHLORIDE 100 mEq/L (99-109); POTASSIUM 3.9 mEq/L (3.7-5.4); SODIUM 134 mEq/L (136-147)
[2018-04-16 03:15] LABS: GLUCOSE 297 mg/dL (70-99)
[2018-04-16 03:19] LABS: CREATININE 1.4 mg/dL (0.6-1.3); GFR ESTIMATE (CALCULATED) 54 mL/min/ (58.99-99999)
[2018-04-16 03:20] LABS: UREA NITROGEN (BUN) 20 mg/dL (9-23)
[2018-04-16 03:26] LABS: TROP-I INTERPRETATION NEGATIVE; TROPONIN-I 0.04 ng/mL (0.0-0.30)
[2018-04-16] MEDS ORDERED: INDOCIN50 MG PO (07:39)
[2018-04-16] MEDS ORDERED: JARDIANCE10 MG PO (07:40)
[2018-04-16] MEDS ORDERED: BENZONATATE200 MG PO (07:43)
[2018-04-16] MEDS ORDERED: ALDACTONE25 MG PO (07:44)
[2018-04-16 19:10] LABS: BASOPHIL (%) 0.4 % (0-1); EOSINOPHIL (%) 1.4 % (0-5); EOSINOPHIL COUNT 0.1 K/uL (0-0.3); HEMATOCRIT 26.1 % (38.0-50.0); HEMOGLOBIN 8.1 G/DL (12.5-16.6); IMMATURE GRANULOCYTE (%) 1.8 % (0.0-0.7); LYMPHOCYTE (%) 22.2 % (15-42); LYMPHOCYTE COUNT 1.9 K/uL (1.0-2.8); MCH 25.2 PG (29.0-34.0); MCV 81.3 FL (86-99); MONOCYTE (%) 4.2 % (3-12); MONOCYTE COUNT 0.4 K/uL (0-0.8); NEUTROPHIL COUNT 5.9 K/uL (1.8-6.4); NRBC (%) 0.2 /100 WBC (0-0); PLATELET COUNT 251 K/uL (156-360); RBC DIS.WIDTH-CV 18.3 % (11.8-14.6); RBC DIS.WIDTH-SD 54.3 % (39-53); RED BLOOD COUNT 3.21 M/uL (4.00-5.50); WHITE BLOOD COUNT 8.4 K/uL (4.1-10.2)
[2018-04-16 22:39] LABS: STOOL OCCULT BLD 1ST SPECIMEN NEGATIVE
[2018-04-16 22:40] LABS: APPEARANCE CLEAR ((CLEAR)); BILIRUBIN NEGATIVE; BLOOD MODERATE; COLOR STRAW ((YELLOW)); GLUCOSE (STRIP) >=500; KETONES NEGATIVE; LEUKOCYTES NEGATIVE; NITRITE NEGATIVE; PROTEIN (STRIP) NEGATIVE; SPECIFIC GRAVITY 1.007 (1.000-1.030); UROBILINOGEN 0.2 MG/DL (0.2-1.0)
[2018-04-16 22:45] LABS: BACTERIA NONE SEEN /HPF; EPITHELIAL CELLS RARE /HPF; MUCUS NONE SEEN /LPF; WHITE BLOOD CELLS 0-5 /HPF (0-5)
[2018-04-17 03:47] VITALS: BP 109/68
[2018-04-17 05:21] LABS: BASOPHIL (%) 0.5 % (0-1); EOSINOPHIL (%) 1.5 % (0-5); EOSINOPHIL COUNT 0.1 K/uL (0-0.3); HEMATOCRIT 24.5 % (38.0-50.0); HEMOGLOBIN 7.7 G/DL (12.5-16.6); IMMATURE GRANULOCYTE (%) 1.7 % (0.0-0.7); LYMPHOCYTE (%) 18.7 % (15-42); LYMPHOCYTE COUNT 1.5 K/uL (1.0-2.8); MCH 25.4 PG (29.0-34.0); MCHC 31.4 G/DL (30.0-36.0); MCV 80.9 FL (86-99); MONOCYTE COUNT 0.4 K/uL (0-0.8); NEUTROPHIL (%) 72.6 % (45-76); NEUTROPHIL COUNT 5.6 K/uL (1.8-6.4); NRBC (%) 0.3 /100 WBC (0-0); PLATELET COUNT 239 K/uL (156-360); RBC DIS.WIDTH-CV 18.5 % (11.8-14.6); RBC DIS.WIDTH-SD 53.7 % (39-53); RED BLOOD COUNT 3.03 M/uL (4.00-5.50); WHITE BLOOD COUNT 7.8 K/uL (4.1-10.2)
[2018-04-17 05:49] LABS: CHLORIDE 102 MEQ/L (99-109); CREATININE 1.3 MG/DL (0.6-1.3); GFR ESTIMATE (CALCULATED) > 59 mL/min/ (58.99-99999); SODIUM 137 MEQ/L (136-147); UREA NITROGEN (BUN) 20 mg/dL (9-23)
[2018-04-17 06:12] LABS: GLUCOSE 145 mg/dL (70-99)
[2018-04-17 07:05] VITALS: BP 124/74
[2018-04-17 07:41] LABS: FERRITIN 32 NG/ML (22-322)
[2018-04-17 11:40] VITALS: BP 121/73
[2018-04-17 13:00] LABS: HEMATOCRIT 27.8 % (38.0-50.0); HEMOGLOBIN 8.7 G/DL (12.5-16.6); MCV 81.5 FL (86-99)
== END 2018-04-17 14:11 | disposition home or self-care (01) | DRG 812 ==
LOC: EME 02:43 → 4EAST 05:20 → EDOF 05:20 → CANRESERV 05:21 → ENRESERV 05:21 → CANRESERV 06:14 → ENRESERV 06:16 → 4EAST 07:48
PROVIDERS: Hospitalist; Internal Medicine; Internal Medicine Cardiovascular Disease; Internal Medicine Hematology & Oncology
PROC: 30233N1 Transfusion of Nonautologous Red Blood Cells into Peripheral Vein, Percutaneous Approach (ICD-10-PCS; principal; 2018-04-16)
DX: D50.0 Iron deficiency anemia secondary to blood loss (chronic) (principal); D63.8 Anemia in other chronic diseases classified elsewhere; I95.9 Hypotension, unspecified; I10 Essential (primary) hypertension; E78.5 Hyperlipidemia, unspecified; R31.9 Hematuria, unspecified; Z95.1 Presence of aortocoronary bypass graft; Z95.3 Presence of xenogenic heart valve; G47.33 Obstructive sleep apnea (adult) (pediatric); Z79.4 Long term (current) use of insulin; E11.9 Type 2 diabetes mellitus without complications; E66.9 Obesity, unspecified; Z68.37 Body mass index [BMI] 37.0-37.9, adult; Z95.5 Presence of coronary angioplasty implant and graft; I25.119 Atherosclerotic heart disease of native coronary artery with unspecified angina pectoris; I25.2 Old myocardial infarction; M10.9 Gout, unspecified; Z79.82 Long term (current) use of aspirin
CPT/HCPCS: 71046; 80048; 81003; 82272; 82728; 82948; 83605; 84484; 85014; 85018; 85025; 85027; 86850; 86870; 86900; 86901; 86920; 87040; 93005; 99281; 99285; C9113; J1815; P9016